=== PATIENT | female | born 1930 | race Caucasian/White ===

== ENCOUNTER 2017-11-08 11:12 | Outpatient (CLI) | payer MEDICARE ==
--- NOTE | 2017-11-08 12:33 | RAD ---
TWO VIEWS OF THE CHEST: HISTORY: Preoperative radiograph. COMPARISON: 04/15/2017 FINDINGS: Two views of the chest show an enlarged but stable cardiomediastinal with atherosclerotic calcificati ons of the aorta. The pacemaker is unchanged in position. There is no evidence of consolidation, ma ss, or pleural effusion. Mild degenerative changes are seen in the spine. IMPRESSION: No evidence of acute cardiopulmonary disease. POS: [facility]
== END 2017-11-08 11:13 | disposition home or self-care (01) ==
LOC: MADRAD 11:12
PROVIDERS: ATTEND Nurse Practitioner Family
DX: J18.9 Pneumonia, unspecified organism (principal)
CPT/HCPCS: 71046